=== PATIENT | female | born 1970 | race Caucasian/White ===

== ENCOUNTER 2024-05-02 18:51 | Observation (INO) | payer OTHER, MEDICAID, SELFPAY ==
[2024-05-02 18:52] VITALS: BP 212/178; PULSE 76; RESP 18; TEMP 36; O2SAT 98; BMI 22.1
--- NOTE | 2024-05-02 19:58 | EX.ED.SAOD ---
HPI History of Present Illness Chief Complaint: Substance Abuse Informant: patient Narrative Narrative: 53-year-old female history of being a drug addict. She states she is here for detox, she regularly uses methamphetamine and fentanyl, she snorts the methamphetamine and smokes the fentanyl. Her last use was this morning, she is feeling a little shaky but otherwise okay. She denies using any other drugs that she knows of including alcohol. She states she has been through detox before it was a long time ago and she states she was not ready but now she is. 1 week ago, her fianc? of 10 years suddenly. He had a heart condition, they used the night before and they were at a hotel and they woke up, he started getting short of breath as he was trying to get dressed, and then collapsed. 911 was called, he was taken to the hospital, but did not survive and now she wants to get her life straightened out. [facility] Medical History Substance abuse Home Medications ?Medication ?Instructions ?Recorded ?Last Taken ?Type NK 05/02/24 Unknown History Allergy/AdvReac Type Severity Reaction Status Date / Time No Known Allergies Allergy Verified 05/02/24 18:52 Social History (Updated 05/02/24 @ 20:[address] Christ Tolbert MD) Smoking Status: Current every day smoker tobacco type: e-cigarettes substance use type: opiates, methamphetamine and other details: No IV drug use ROS ROS ED Constitutional Constitutional ED: Denies chills or fever(s) Eyes Eyes: Denies change in vision or diplopia ENT ENT ED: Denies rhinorrhea or sore throat Cardiovascular Cardiovascular: Denies chest pain or palpitations Respiratory/Chest Respiratory/Chest: Denies cough or dyspnea Gastrointestinal Gastrointestinal: Denies abdominal pain, diarrhea, nausea or vomiting Genitourinary Genitourinary ED: Denies dysuria or hematuria Musculoskeletal Musculoskeletal: Denies back pain or neck pain Integumentary Denies abscess or rash Neurologic Neurologic: Denies headache(s), paresthesias or weakness Psychiatric Psychiatric: Reports anxiety and depression; Denies suicidal ideation or suicidal thoughts EXAM Physical Exam Const Vital Signs: 05/02/24 18:52 05/02/24 20:00 05/02/24 21:00 Temperature 96.8 F L Temperature Source Temporal Pulse Rate 76 Respiratory Rate 18 18 Blood Pressure 212/178 H Blood Pressure Mean 189 Pulse Ox 98 97 Oxygen Delivery Method Room Air 05/02/24 21:20 Temperature 97.9 F Temperature Source Pulse Rate 70 Respiratory Rate 16 Blood Pressure 157/95 H Blood Pressure Mean 115 Pulse Ox 97 Oxygen Delivery Method Positive well nourished and well developed General Appearance ED: well developed and NAD HEENT Reports moist mucous membranes normocephalic and atraumatic Eyes PERRL and EOMs intact bilaterally Neck full ROM and supple Resp normal respiratory effort and clear to auscultation bilaterally Cardio regular rate, regular rhythm and no murmurs Rate: Negative for tachycardic GI non-tender and non-distended Auscultation: normoactive bowel sounds Palpation: soft Back/Spine no CVA tenderness General Back: other FROM Extremity normal to inspection General Extremety ED: Negative for edema, pulses abnormal or tenderness General Extremity: Negative for edema or pulses abnormal Neuro oriented x3, CN's II-XII intact bilaterally and no sensory deficits noted Sensorium / Orientation: awake and alert Motor Exam: strength 5/5 throughout Psych mental status grossly normal and thought process normal Psych Narrative: Goal-directed thoughts, no suicidal ideation or hallucinations/delusions. Mood & Affect: depressed and tearful Skin no rashes or lesions noted and no wounds MDM MDM MDM Narrative Medical decision making narrative: Labs obtained and reviewed. Patient clinically and hemodynamically stable. Triage blood pressure likely inaccurate so I had nursing recheck it, 157/95. Toxicology positive for cocaine which may explain this. She has had no chest pains. Discussed with hospitalist for admission for detox. Lab Data Attestation: I reviewed the patient's lab results. Labs: Laboratory Results - last 24 hr 05/02/24 05/02/24 20:22 20:30 WBC 12.8 H RBC 4.28 Hgb 13.0 Hct 38.9 MCV 90.9 MCH 30.4 MCHC 33.4 RDW Std Deviation 43.9 RDW Coeff of Marylou 13.3 Plt Count 358 MPV 8.4 Immature Gran % (Auto) 0.400 Neut % (Auto) 53.3 Lymph % (Auto) 35.5 [place] % (Auto) 7.8 Eos % (Auto) 2.5 Baso % (Auto) 0.5 Absolute Neuts (auto) 6.8 Absolute Lymphs (auto) 4.54 H Nucleated RBC % 0 Sodium 141 Potassium 3.7 Chloride 106 Carbon Dioxide 30.0 Anion Gap 5 BUN 19 H Creatinine 1.21 H Estim Creat Clear Calc 47.27 Est GFR (MDRD) Af Amer 59 L Est GFR (MDRD) Non-Af 49 L BUN/Creatinine Ratio 15.7 Glucose 96 Calcium 9.7 Total Bilirubin 0.40 AST 77 H ALT 42 Alkaline Phosphatase 79 Total Protein 8.5 H Albumin 4.0 Globulin 4.5 H Albumin/Globulin Ratio 0.9 Serum , Qual NEGATIVE Urine Opiates Screen POSITIVE H Urine Methadone Screen NEGATIVE Ur Barbiturates Screen NEGATIVE Ur Phencyclidine Scrn NEGATIVE Ur Amphetamines Screen POSITIVE H MDMA (Ecstasy) Screen NEGATIVE U Benzodiazepines Scrn NEGATIVE Urine Cocaine Screen POSITIVE H U Cannabinoids Screen NEGATIVE Ur Drug Screen Comment Ethyl Alcohol 5.0 Management Discussion w/another healthcare provider: Hospitalist Discharge Plan Dx/Rx/DC Orders Clinical Impression: Opiate dependence, Polysubstance abuse Disposition Disposition: Acute Care Hospital [facility] Discharge Date/Time: 05/02/24 22:38
[2024-05-02 20:00] VITALS: RESP 18
[2024-05-02 20:39] LABS: Absolute Lymphocyte Count 4.54 X10^3/uL (0.83-4.51); Absolute Neutrophil Count 6.8 X10^3/uL (2.0-7.7); Basophil# 0.07 X10^3/uL; Basophil% 0.5 % (0-1); Eosinophil# 0.32 X10^3/uL; Eosinophils% 2.5 % (0-5); Hematocrit 38.9 % (37-47); Lymphocyte # 4.54 X10^3/ul (0.83-4.51); Lymphocyte % 35.5 % (19-41); Mean Corp Hgb Conc 33.4 g/dL (32-36); Mean Corpuscular Hgb 30.4 pg (27.0-32.0); Mean Corpuscular Volume 90.9 fL (81-99); Mean Platelet Vol. 8.4 fl (6.2-12.0); Monocyte% 7.8 % (0-10); NRBC Flagged by Analyzer 0 % (0-5); Neutrophil # 6.81 X10^3/uL (2.7-7.7); Neutrophil % 53.3 % (47-70); Platelet Count 358 K/mm3 (150-450); RBC Distribution Width CV 13.3 % (11.6-14.6); RBC Distribution Width SD 43.9 fl (35.1-43.9); Red Blood Count 4.28 M/mm3 (4.2-5.4); White Blood Count 12.8 K/mm3 (4.4-11.0)
[2024-05-02 20:51] LABS: Internal QC Validated? YES +Cl - CLEAR BKGD; Pregnancy, Serum, hCG Quali. NEGATIVE Negative
[2024-05-02 20:58] LABS: Amphetamine Urine POSITIVE (<1000 ng/mL); Barbiturate Urine VISTA NEGATIVE (< 200 ng/mL); Benzodiazepine Urine VISTA NEGATIVE (< 200 ng/mL); Cocaine Urine VISTA POSITIVE (< 300 ng/mL); Ecstacy Urine VISTA NEGATIVE (< 500 ng/mL); Methadone Urine VISTA NEGATIVE (< 300 ng/mL); PCP Urine VISTA NEGATIVE (< 25 ng/mL); THC Urine VISTA NEGATIVE (< 50 ng/mL); Vista UDS pH Range 6
[2024-05-02 21:00] VITALS: O2SAT 97
[2024-05-02 21:00] LABS: ALB/GLOB Ratio 0.9 RATIO (0.9-2.4); AST(SGOT) 77 U/L (15-37); Alanine Aminotransfer ALT/SGPT 42 U/L (13-56); Alkaline Phosphatase 79 U/L (45-117); Anion Gap 5 (5-15); BUN 19 mg/dL (7-18); BUN/Creat Ratio 15.7 RATIO (10-20); Calcium,Total 9.7 mg/dL (8.5-10.1); Chloride 106 mmol/L (98-107); Creatinine, Serum 1.21 mg/dL (0.55-1.02); EST Glomerular Filtration Rate 49 mL/min (>60); Est Glom Filt Rate - Afr Amer 59 mL/min (>60); Estimated Creatinine Clearance 47.27 ml/min; Globulin 4.5 g/dL (2.2-4.2); Glucose 96 mg/dL (74-106); Potassium 3.7 mmol/L (3.5-5.1); Protein, Total 8.5 g/dL (6.4-8.2); Sodium Level 141 mmol/L (136-145)
[2024-05-02 21:20] VITALS: BP 157/95; PULSE 70; RESP 16; TEMP 36.6; O2SAT 97
--- NOTE | 2024-05-02 21:31 | HP.PCM.HOS_ITS ---
[facility] - General General Date of Admission: 05/02/24 Date of Service: 05/02/24 Chief Complaint: Inpatient opioid rehabilitation HPI Narrative KTAYA HUERTA, is a 53 F with history of polysubstance abuse who presents to the ED for concerns regarding ongoing opioid dependence and desire for the addiction. The patient is distraught, she lost her long-term fianc? few days back. She is addicted to opioid use, smokes fentanyl and occasionally uses cocaine. Also vapes, no alcohol use. She last smoked fentanyl this morning. She has been trying to quit her addiction for the last few years but has had 2 withdrawal episodes. At this time is grieving the loss of her partner, and is feeling anxious following her opioid use this morning. No nausea vomiting, declines nicotine patches. At the time of presentation in the ED, blood pressure 157/95, pulse 70, respiratory rate 16, oxygen saturation 97, WBC 12.8, hemoglobin 13, platelet 358, sodium 141, potassium 3.7, BUN 19, creatinine 1.1, AST 77, ALT 42, albumin 4.0. Urine opiates, amphetamine, cocaine positive. Ethyl alcohol positive. [facility] Medical History Substance abuse Home Medications ?Medication ?Instructions ?Recorded ?Last Taken ?Type NK 05/02/24 Unknown History Allergy/AdvReac Type Severity Reaction Status Date / Time No Known Allergies Allergy Verified 05/02/24 18:52 Social History (Updated 05/02/24 @ 20:[address] Christ Tolbert MD) Smoking Status: Current every day smoker tobacco type: e-cigarettes substance use type: opiates, methamphetamine and other details: No IV drug use ROS Review of Systems ROS Unobtainable: Denies due to encephalopathy, due to endotracheal tube, due to mental condition, due to mental status or other Constitutional Constitutional: Reports anorexia Eyes Eyes: Denies blurry vision, change in eye color, change in vision, discharge from eye(s), double vision, erythema, eye pain, loss of vision or other ENT HEENT: Denies abnormal hearing, dysphagia, ear pain, epistaxis, headache(s), hearing loss, nasal congestion, nasal discharge, post nasal drip, sinus pressure, sore throat or other Cardiovascular Cardiovascular: Denies chest pain, claudication, dyspnea on exertion, edema, lightheadedness, orthopnea, palpitations, paroxysmal nocturnal dyspnea, rapid heart rate, syncope or other Respiratory/Chest Respiratory/Chest: Denies cough, dyspnea, excessive phlegm production, hemoptysis, productive cough, shortness of breath at rest, shortness of breath with exertion, wheezing or other Gastrointestinal Gastrointestinal: Denies abdominal pain, coffee ground emesis, constipation, diarrhea, dyspepsia, hematemesis, hematochezia, loose stools, melena, nausea, vomiting or other Genitourinary Genitourinary: Denies burning urination, difficulty urinating, dysuria, hematuria, nocturia, urinary frequency, urinary hesitancy, urinary incontinence, urinary urgency or other Musculoskeletal Musculoskeletal: Denies arthralgias, back pain, joint pain, joint stiffness, joint swelling, myalgias, neck pain or other Neurologic Neurologic: Denies abnormal gait, abnormal speech, confusion, disequilibrium, dizziness, focal weakness, headache(s), numbness, paresthesias, seizure-like activity, seizures, syncope, tingling, tremor(s) or other Psychiatric Psychiatric: Denies anxiety, depression, homicidal ideation, suicidal ideation or other Endocrine Endocrinology: Denies change in body appearance, cold intolerance, excessive sweating, heat intolerance, polydipsia, polyuria or other Allergic/Immunologic Allergic/Immunologic: Denies rhinitis, hives, eczemia, asthma or other Vital Signs Vital Signs Vital Signs: 05/02/24 18:52 05/02/24 20:00 05/02/24 21:00 Temperature 96.8 F L Temperature Source Temporal Pulse Rate 76 Respiratory Rate 18 18 Blood Pressure 212/178 H Blood Pressure Mean 189 Pulse Ox 98 97 Oxygen Delivery Method Room Air 05/02/24 21:20 Temperature 97.9 F Temperature Source Pulse Rate 70 Respiratory Rate 16 Blood Pressure 157/95 H Blood Pressure Mean 115 Pulse Ox 97 Oxygen Delivery Method Weight Weight: 133 lb Body Mass Index (BMI) 22.1 Physical Exam Const alert and oriented x3 Constitutional Narrative: Anxious, depressed HEENT normocephalic Eyes PERRL Neck no lymphadenopathy Resp normal respiratory effort Cardio regular rate and regular rhythm GI normal to inspection, nondistended, normoactive bowel sounds Extremity normal to inspection Neuro oriented x3, CN's II-XII intact bilaterally and moves all extremities Psych Psych Narrative: Anxious, constantly crying inconsolably due to the loss of her partner. Results Medical Records Data Attestation: I reviewed the patient's medical records Lab / Micro Data 05/02/24 20:30 05/02/24 20:30 Labs: Laboratory Results - last 24 hr 05/02/24 20:22: Urine Opiates Screen POSITIVE H, Urine Methadone Screen NEGATIVE, Ur Barbiturates Screen NEGATIVE, Ur Phencyclidine Scrn NEGATIVE, Ur Amphetamines Screen POSITIVE H, MDMA (Ecstasy) Screen NEGATIVE, U Benzodiazepines Scrn NEGATIVE, Urine Cocaine Screen POSITIVE H, U Cannabinoids Screen NEGATIVE, Ur Drug Screen Comment 05/02/24 20:30: WBC 12.8 H, RBC 4.28, Hgb 13.0, Hct 38.9, MCV 90.9, MCH 30.4, MCHC 33.4, RDW Std Deviation 43.9, RDW Coeff of Marylou 13.3, Plt Count 358, MPV 8.4, Immature Gran % (Auto) 0.400, Neut % (Auto) 53.3, Lymph % (Auto) 35.5, [place] % (Auto) 7.8, Eos % (Auto) 2.5, Baso % (Auto) 0.5, Absolute Neuts (auto) 6.8, A bsolute Lymphs (auto) 4.54 H, Nucleated RBC % 0, Sodium 141, Potassium 3.7, Chloride 106, Carbon Dioxide 30.0, Anion Gap 5, BUN 19 H, Creatinine 1.21 H, Estim Creat Clear Calc 47.27, Est GFR (MDRD) Af Amer 59 L, Est GFR (MDRD) Non-Af 49 L, BUN/Creatinine Ratio 15.7, Glucose 96, Calcium 9.7, Total Bilirubin 0.40, AST 77 H, ALT 42, Alkaline Phosphatase 79, Total Protein 8.5 H, Albumin 4.0, G lobulin 4.5 H, Albumin/Globulin Ratio 0.9, Serum , Qual NEGATIVE, Ethyl Alcohol 5.0 Assessment & Plan Assessment/Plan (1) Polysubstance abuse: PLAN: Plan 53-year-old female with history of polysubstance abuse is getting admitted for inpatient opioid the addiction. We will start her on inpatient protocol for diuretics and therapy. Her last use of fentanyl was this morning, she is not showing any symptoms of withdrawal at this time. #Opioid use disorder #Clinical opiate withdrawal scale: 1 (no active withdrawal) -Start therapy with clonidine, buprenorphine, dicyclomine, gabapentin therapy per protocol -Ad yuri. activity -Social work consult for rehabilitation -Repeat liver profile tomorrow given the elevated LFTs -HCV screening #Elevated liver enzymes -Denies alcohol use though blood ethanol alcohol levels are high -Continue to monitor for any symptoms of withdrawal -Repeat liver enzymes and coagulation profile tomorrow #Grief reaction -Continue to monitor for any worsening symptoms/suicidal ideation #Hypertension -Likely secondary to opioid use -Continue to monitor #Mildly elevated BUN -Repeat BMP tomorrow #VTE prophylaxis -Injection enoxaparin 40 mg subcu -Encourage mobilization Charges/Coding Visit Charges Inpatient E&M: 53907 Init Hosp L2
[2024-05-02 22:47] VITALS: BMI 20.9
[2024-05-02 23:00] VITALS: BP 147/98; PULSE 63; RESP 16; TEMP 36.6; O2SAT 99
[2024-05-02] MEDS: hydrOXYzine PAM 25 MG Capsule 50 MG PO (23:19)
[2024-05-02] MEDS: traZODone 100 MG Tablet PO (23:19)
[2024-05-03 06:22] VITALS: BP 132/67; PULSE 60; RESP 14; TEMP 36.5; O2SAT 100
[2024-05-03 06:45] LABS: Absolute Lymphocyte Count 4.39 X10^3/uL (0.83-4.51); Absolute Neutrophil Count 4.3 X10^3/uL (2.0-7.7); Basophil# 0.06 X10^3/uL; Basophil% 0.6 % (0-1); Eosinophil# 0.41 X10^3/uL; Hematocrit 40.9 % (37-47); Hemoglobin 13.6 g/dL (12.0-15.0); Lymphocyte # 4.39 X10^3/ul (0.83-4.51); Lymphocyte % 43.3 % (19-41); Mean Corp Hgb Conc 33.3 g/dL (32-36); Mean Corpuscular Hgb 30.8 pg (27.0-32.0); Mean Corpuscular Volume 92.5 fL (81-99); Mean Platelet Vol. 8.4 fl (6.2-12.0); Monocyte# 0.94 X10^3/uL; Monocyte% 9.3 % (0-10); NRBC Flagged by Analyzer 0 % (0-5); Neutrophil # 4.31 X10^3/uL (2.7-7.7); Neutrophil % 42.4 % (47-70); Platelet Count 346 K/mm3 (150-450); RBC Distribution Width CV 13.3 % (11.6-14.6); RBC Distribution Width SD 45.1 fl (35.1-43.9); Red Blood Count 4.42 M/mm3 (4.2-5.4); White Blood Count 10.2 K/mm3 (4.4-11.0)
[2024-05-03 07:02] LABS: International Normalized Ratio 1.1; Prothrombin Time (Protime)PT. 14.4 SECONDS (11.7-14.9)
[2024-05-03 07:31] LABS: ALB/GLOB Ratio 0.9 RATIO (0.9-2.4); AST(SGOT) 66 U/L (15-37); Alanine Aminotransfer ALT/SGPT 34 U/L (13-56); Albumin, Serum 3.3 g/dL (3.2-5.0); Alkaline Phosphatase 64 U/L (45-117); Anion Gap 6 (5-15); BUN 13 mg/dL (7-18); BUN/Creat Ratio 13.6 RATIO (10-20); Bilirubin, Direct 0.17 mg/dL (0.00-0.30); Calcium,Total 9.2 mg/dL (8.5-10.1); Chloride 107 mmol/L (98-107); Creatinine, Serum 0.96 mg/dL (0.55-1.02); EST Glomerular Filtration Rate 64 mL/min (>60); Est Glom Filt Rate - Afr Amer 78 mL/min (>60); Estimated Creatinine Clearance 59.58 ml/min; Globulin 3.8 g/dL (2.2-4.2); Glucose 100 mg/dL (74-106); Magnesium 1.9 mg/dL (1.6-2.6); Phosphorus 4.9 mg/dL (2.5-4.9); Potassium 3.9 mmol/L (3.5-5.1); Protein, Total 7.1 g/dL (6.4-8.2); Sodium Level 140 mmol/L (136-145)
--- NOTE | 2024-05-03 10:31 | ADDICTION ---
Addendum entered by Ursula Gutierrez 05/04/24 14:07: [facility] did not get back with this worker about admission and transportation. Placed a referral for [facility] in [place]. They completed her assessment and approved her for admission today. She will be picked up today around 4pm. Original Note: This underwriter solicitation director met with PT to conduct ASAM, MSE, DUDIT assessments and to plan for d/c. PT A+Ox4 and participated actively. All assessments completed and MIRIAM signed. PT plans to f/u with [facility] for follow-up inpatient treatment services. PT did not indicate a need for transportation post d/c from [facility].If Approved by [facility], the plan will be to go tomorrow or possibly this weekend.
[2024-05-03 11:57] VITALS: BP 140/85; PULSE 78; RESP 16; TEMP 36.4; O2SAT 97
--- NOTE | 2024-05-03 12:28 | CASEMGMT ---
Social Work- SW met with pt to conduct SDOH assessment. Pt reports that she has been homeless for years. Pt was previously living in a motel in [place]. Pt recently lost her boyfriend (04/24) and has been unable to pay for housing since that time. Pt reports that she has not grieved the loss at this time. Pt reports that she has no income and has not worked for a number of years. Pt has no mental health services and reports no community connections or services. Pt has no primary care. Pt has no substance use supports or services at this time. Pt plans to discharge to inpatient treatment. MALENA provided pt with the following printed information: [facility], [facility], food box, food pantry, and hot served meals list, shelters, mental health providers, Zonia Olsen, and PCP list for [facility]. Pt reports no questions or other needs at this time. SW remains available to follow. LAUREN Henriquez
--- NOTE | 2024-05-03 15:53 | CHAPLAIN ---
Type of Pastoral Visit _x__ Initial Visit ___ Follow-up Visit ___ On-call Visit ___ General Patient Visit ___ Spiritual Assessment ___ Family Conference ___ Bereavement ___ Rapid Response ___ Code Blue ___ Other (describe below) Pastoral Care Referral From _x__ Patient ___ Family ___ Nurse ___ Physician ___ Shell Maker Lockstitch ___ Pneumatic Tool Operator ___ Other (describe below) Sacrament/Intervention ___ Active listening ___ Anointing ___ Mosque ___ Bereavement ___ Communion ___ Ryanne exploration ___ ___ Life review ___ Prayer ___ Reconciliation ___ Sacrament of Sick _x__ Supportive presence ___ Wedding ___ Other (describe below) Pastoral Comments patient was just awakened by the CLINICAL TRIAL HEAD and so this hydrotherapist followed same into the room; pt is awake but sleepy; pt states that she is fine for the moment, is trying to get through these days of detox, and hoping to just get more rest for now; offer of return visit tomorrow and pt accepts that as a better option
--- NOTE | 2024-05-03 20:01 | PN.HOSP_ITS ---
Reason for Visit Reason for Visit: Opiate abuse Subjective Subjective Patient states she is not having significant amount of symptoms right now. COWS has not been high enough to start Subutex. I did discuss with the patient that her withdrawal may not be severe because she utilizes opiates and methamphetamines and those tend to balance each other out some. Plan is for inpatient rehab and patient is agreeable. Objective Data Objective Data Vital Signs: Vital Signs Temp Pulse Resp BP Pulse Ox O2 Del Method 97.5 F L 78 16 140/85 H 97 Room Air 05/03/24 11:57 05/03/24 11:57 05/03/24 11:57 05/03/24 11:57 05/03/24 11:57 05/03/24 11:57 Oxygen Delivery Method Room Air Weight: 57.2 kg Body Mass Index (BMI) 20.9 Intake & Output: Intake and Output for Last 24 Hours 05/01/24 05/02/24 05/03/24 23:59 23:59 23:59 Intake Total 190 / 190 Balance 190 / 190 Lab / Micro Data 05/03/24 06:36 05/03/24 06:36 Labs: Laboratory Results - last 24 hr 05/02/24 20:22: Urine Opiates Screen POSITIVE H, Urine Methadone Screen NEGATIVE, Ur Barbiturates Screen NEGATIVE, Ur Phencyclidine Scrn NEGATIVE, Ur Amphetamines Screen POSITIVE H, MDMA (Ecstasy) Screen NEGATIVE, U Benzodiazepines Scrn NEGATIVE, Urine Cocaine Screen POSITIVE H, U Cannabinoids Screen NEGATIVE, Ur Drug Screen Comment 05/02/24 20:30: WBC 12.8 H, RBC 4.28, Hgb 13.0, Hct 38.9, MCV 90.9, MCH 30.4, MCHC 33.4, RDW Std Deviation 43.9, RDW Coeff of Marylou 13.3, Plt Count 358, MPV 8.4, Immature Gran % (Auto) 0.400, Neut % (Auto) 53.3, Lymph % (Auto) 35.5, [place] % (Auto) 7.8, Eos % (Auto) 2.5, Baso % (Auto) 0.5, Absolute Neuts (auto) 6.8, A bsolute Lymphs (auto) 4.54 H, Nucleated RBC % 0, Sodium 141, Potassium 3.7, Chloride 106, Carbon Dioxide 30.0, Anion Gap 5, BUN 19 H, Creatinine 1.21 H, Estim Creat Clear Calc 47.27, Est GFR (MDRD) Af Amer 59 L, Est GFR (MDRD) Non-Af 49 L, BUN/Creatinine Ratio 15.7, Glucose 96, Calcium 9.7, Total Bilirubin 0.40, AST 77 H, ALT 42, Alkaline Phosphatase 79, Total Protein 8.5 H, Albumin 4.0, G lobulin 4.5 H, Albumin/Globulin Ratio 0.9, Serum , Qual NEGATIVE, Ethyl Alcohol 5.0 05/03/24 06:36: WBC 10.2, RBC 4.42, Hgb 13.6, Hct 40.9, MCV 92.5, MCH 30.8, MCHC 33.3, RDW Std Deviation 45.1 H, RDW Coeff of Marylou 13.3, Plt Count 346, MPV 8.4, Immature Gran % (Auto) 0.400, Neut % (Auto) 42.4 L, Lymph % (Auto) 43.3 H, [place] % (Auto) 9.3, Eos % (Auto) 4.0, Baso % (Auto) 0.6, Absolute Neuts (auto) 4.3, Absolute Lymphs (auto) 4.39, Nucleated RBC % 0, PT 14.4, INR 1.1, Sodium 140, Potassium 3.9, Chloride 107, Carbon Dioxide 27.0, Anion Gap 6, BUN 13, Creatinine 0.96, Estim Creat Clear Calc 59.58, Est GFR (MDRD) Af Amer 78, Est GFR (MDRD) Non-Af 64, BUN/Creatinine Ratio 13.6, Glucose 100, Calcium 9.2, Phosphorus 4.9, Magnesium 1.9, Total Bilirubin 0.50, Direct Bilirubin 0.17, AST 66 H, ALT 34, Alkaline Phosphatase 64, Total Protein 7.1, Albumin 3.3, Globulin 3.8, Albumin/Globulin Ratio 0.9 Social Homelessness:: Sheltered Physical Exam Const alert, oriented x3 and no apparent distress Constitutional Narrative: Middle-aged, white female, lying in bed, appears older than stated age, appears comfortable currently, nontoxic Cardio regular rate, regular rhythm, S1 normal heart sound, S2 normal heart sound, no murmurs, no rub, no gallops and no clicks GI non-tender Neuro moves all extremities Psych Psych Narrative: Affect is slightly flat, patient makes good eye contact, interacts appropriately Assessment & Plan Assessment/Plan (1) Polysubstance abuse: (2) Opiate dependence: PLAN: Plan Opiate abuse -Continue COWS protocol with Subutex initiation per protocol -Severe withdrawal may not be problematic as she uses both methamphetamine and fentanyl and these tend to balance each other out -Discussed case with addiction medicine and plan is for inpatient treatment possibly as early tomorrow 05/04/2024 depending on symptoms Methamphetamine abuse -Recommend cessation Elevated serum creatinine -Resolved with IV fluids -Suspect some mild dehydration on presentation Mild AST elevation -Trending down without any intervention -Would recommend outpatient follow-up Elevated blood pressure -Likely related to the above mild withdrawal -Continue to monitor and blood pressures are consistently greater than 130/80 may consider starting antihypertensives Grief reaction -Longtime boyfriend recently lost his life to opiate overdose Tobacco abuse -Nicotine patch available -Recommend cessation DVT prophylaxis -Continue subcu enoxaparin CODE STATUS -Verified as full code on admission Charges/Coding Visit Charges Inpatient E&M: 40315 Subs Hosp L1
[2024-05-03] MEDS: hydrOXYzine PAM 25 MG Capsule 50 MG PO (20:07)
[2024-05-03] MEDS: Methocarbamol 750 MG Tablet PO (20:07)
[2024-05-03] MEDS: traZODone 100 MG Tablet PO (20:07)
[2024-05-03 20:42] VITALS: BP 136/86; PULSE 68; RESP 16; TEMP 36.6; O2SAT 96
[2024-05-04 05:00] VITALS: BP 139/99; PULSE 76; RESP 14; TEMP 36.6; O2SAT 97
[2024-05-04 10:11] VITALS: BP 138/87; PULSE 79; RESP 16; TEMP 36.5; O2SAT 96
--- NOTE | 2024-05-04 14:29 | DCINST_ITS ---
Discharge Instructions Diet Discharge Diet: Low fat / Low cholesterol DC O2, CPAP, BIPAP needs Additional Home O2 Discharge instructions: No Dressing / Incision Discharge Activity: Return to Normal Activity Weight Bearing Status: Weight bearing as tolerated Dressing / Incision Call your doctor if you observe: Fever of 101 or Higher, Shortness of breath, Dizziness, Swelling in the ankles and Chest pain Follow Up Care Test Results: Test results from this visit will be discussed in further detail at your follow- up appointment, if applicable. Discharge Plan Admission Admit Date/Time: 05/02/24 21:35 Primary Reason for Your Visit: opioid dependence Attending Provider: Lisa Roche Primary Care Provider: Lexi Physician,No Primary Consulting Providers: Brittani Brito; Cary Grossman Instructions Patient Instructions: ED Opiate Abuse Discharge Orders/Prescriptions Prescriptions: No Action NK Referrals / Follow Up: Care Physician,No Primary [Primary Care Provider] - NOT,DEFINED [Non-Staff] - Disposition Disposition (needs filled in before D/C Order can be placed): Home, Self Care
--- NOTE | 2024-05-04 14:29 | PCM.DC.SUM ---
Providers Date of Admission: 05/02/24 Date of Discharge: 05/04/24 Primary Care Physician: No Primary Care Phys Reason For Visit: SUBSTANCE ABUSE Diagnosis Discharge Diagnosis (1) Polysubstance abuse: Status: Acute Code(s): F19.10 - Other psychoactive substance abuse, uncomplicated (2) Opiate dependence: Status: Acute Code(s): F11.20 - Opioid dependence, uncomplicated Medications at Discharge Home Medications NK 05/02/24 Hospital Course Operations None Summary of Care Provided Minutes Spent on Discharge: 48 Hospital Course: Patient is a 53-year-old female with past medical history as outlined including history of polysubstance abuse was admitted to the ED on 05/02/2024 with request for detoxification from opioids. Patient says she had lost her longtime fianc? few days back to opioid overdose. He had last smoked fentanyl on the day of admission. She used opiates and occasionally cocaine and also vape but denied using any alcohol. Urine tox was positive for opiates, amphetamine and cocaine. She was admitted and managed for acute. Withdrawal. She was placed on opioid withdrawal protocol with buprenorphine. Patient was agreeable to in person treatment further opioid addiction. She was discharged to an inpatient detox facility on 05/04/2024. Patient was seen and examined prior to discharge. She felt well and had no complaints. She had an uneventful night. Review of systems otherwise negative. Labs and vitals reviewed. Physical Exam Const alert, oriented x3 and no apparent distress General Appearance: cooperative and comfortable Orientation / Consciousness: awake HEENT normocephalic, head/scalp atraumatic, hearing grossly normal bilaterally and moist oral mucous membranes Mouth: oral and palatal mucosa normal Eyes PERRL and conjunctivae normal Neck no lymphadenopathy and supple Resp normal respiratory effort, no retractions, no use of accessory muscles and clear to auscultation bilaterally Cardio regular rate, regular rhythm, S1 normal heart sound, S2 normal heart sound and no murmurs GI normal to inspection, nondistended, normoactive bowel sounds, soft to palpation, non-tender and non-distended Extremity normal to inspection, full ROM and no clubbing, cyanosis or edema Skin no rashes or lesions noted, no wounds, skin turgor normal and no jaundice Neuro oriented x3, CN's II-XII intact bilaterally, moves all extremities and no focal motor deficits Sensorium / Orientation: awake and alert Motor Exam: strength 5/5 throughout Psych affect normal Medical Records Data Homelessness:: Sheltered Weight / BMI Weight Weight: 126 lb 1.671 oz Body Mass Index (BMI) 20.9 ABG / Lab / Microbiology Data 05/03/24 06:36 05/03/24 06:36 D/C Instructions Discharge Diet: Low fat / Low cholesterol Discharge Activity: Return to Normal Activity Weight Bearing Status: Weight bearing as tolerated Call your doctor if you observe: Fever of 101 or Higher, Shortness of breath, Dizziness, Swelling in the ankles and Chest pain DC O2, CPAP, BIPAP Needs Additional Home O2 Discharge instructions: No DC home with Oxygen: No Meaningful Use Info Meaningful Use Meaningful Use Diagnoses (Choose all that apply): None applicable Ischemic Stroke Statin Dosing Therapy Reference: STATIN DOSE THERAPY REFERENCE: * Patients > 75 years receive moderate or high dose statin therapy. * Patients 75 years or YOUNGER should receive HIGH intensity statin dose unless contraindicated. You will be required to document reason for non-treatment if statin daily dose does not meet guidelines. HIGH DOSE STATIN THERAPY DAILY Atorvastatin > than or = to 40 mg Rosuvastatin > than or = to 20 mg Amlodipine + Atorvastatin > than or = to 2.5/40 mg Ezetimibe + Simvastatin 10/80 mg Simvastatin 80mg Discharge Plan Admission Admit Date/Time: 05/02/24 21:35 Primary Reason for Your Visit: opioid dependence Attending Provider: Lisa Roche Primary Care Provider: Care Physician,No Primary Consulting Providers: Brittani Brito; Cary Grossman Instructions Patient Instructions: ED Opiate Abuse Discharge Orders/Prescriptions Prescriptions: No Action NK Referrals / Follow Up: Care Physician,No Primary [Primary Care Provider] - NOT,DEFINED [Non-Staff] - Disposition Disposition (needs filled in before D/C Order can be placed): Home, Self Care Charges/Coding Visit Charges Inpatient E&M: 04382 Disch Hosp >30min
--- NOTE | 2024-05-04 14:53 | CHAPLAIN ---
Type of Pastoral Visit ___ Initial Visit ___ Follow-up Visit ___ On-call Visit ___ General Patient Visit ___ Spiritual Assessment ___ Family Conference ___ Bereavement ___ Rapid Response ___ Code Blue ___ Other (describe below) Pastoral Care Referral From ___ Patient ___ Family ___ Nurse ___ Physician ___ Data Warehousing Architect ___ Link Trainer Maintenance Man ___ Other (describe below) Sacrament/Intervention ___ Active listening ___ Anointing ___ Sabianist ___ Bereavement ___ Communion ___ Ryanne exploration ___ ___ Life review ___ Prayer ___ Reconciliation ___ Sacrament of Sick ___ Supportive presence ___ Wedding ___ Other (describe below) Pastoral Comments patient is sound asleep again this day so a visit was not possible
== END 2024-05-04 16:30 | DRG 897 ==
LOC: ED 21:19 → MS3 22:26
PROVIDERS: Admitting Provider Internal Medicine; Emergency Provider Emergency Medicine; Visit Provider Student in an Organized Health Care Education/Training Program
DX: F11.23 Opioid dependence with withdrawal (principal); F15.10 Other stimulant abuse, uncomplicated; F14.90 Cocaine use, unspecified, uncomplicated; I10 Essential (primary) hypertension; F43.29 Adjustment disorder with other symptoms; F17.290 Nicotine dependence, other tobacco product, uncomplicated; R74.8 Abnormal levels of other serum enzymes; R79.89 Other specified abnormal findings of blood chemistry; R74.01 Elevation of levels of liver transaminase levels; Z59.01 Sheltered homelessness; Z63.4 Disappearance and death of family member